=== PATIENT | male | born 1945 | race Caucasian/White ===

== ENCOUNTER 2018-10-16 09:31 | Observation (INO) ==
[2018-10-16] MEDS ORDERED: MORPHINE 4 MG/1 ML VIAL IV PRN (10:11)
[2018-10-16] MEDS ORDERED: ONDANSETRON 4 MG/2 ML VIAL IV PRN ×2 (10:11→14:34)
[2018-10-16] MEDS ORDERED: NITROGLYCERIN 2% OINT 1 INCH/GM PACK TOP STA (10:11)
[2018-10-16] MEDS ORDERED: ASPIRIN 325 MG TABLET PO STA (10:11)
[2018-10-16 10:40] LABS: Basophils % 0.5 % (0.0-0.8); Eosinophils # 0.3 10*3/uL (0.0-0.87); Eosinophils % 3.9 % (0.00-10.9); Hematocrit 41.3 VOL% (42.0-52.0); Hemoglobin 14.3 GM/DL (14.0-18.0); Immature Granulocytes % 0.5 %; Immature Granulocytes Absolute 0.03 #; Lymphocytes # 1.6 10*3/uL (1.4-4.0); Lymphocytes % 24.2 % (21.2-54.2); Mean Corpuscular HGB Conc 34.6 GM/DL (32-36); Mean Corpuscular Hemoglobin 30 PG (27-34); Mean Corpuscular Volume 86.4 FL (87-102); Mean Platelet Volume 8.6 FL (9.6-12.0); Monocytes # 0.6 10*3/uL (0.11-0.8); Monocytes % 9.1 % (1.7-12.7); Neutrophils # 4.1 10*3/uL (1.4-7.4); Neutrophils % 61.8 % (38.7-73.9); Platelet Count 178 T/CUMM (130-400); Red Blood Count 4.78 MC/CUMM (3.8-5.5); Red Cell Distribution Width 13.2 % (9.3-17.3); White Blood Count 6.6 T/CUMM (4-12)
[2018-10-16 10:50] LABS: Partial Thromboplastin Time 33.4 SECS (0-40)
[2018-10-16 10:55] LABS: INR 2.6
[2018-10-16 10:57] LABS: PT Patient Result 28.1 SECS
[2018-10-16 11:51] LABS: Albumin 3.7 G/DL (3.4-5.0); Bilirubin,Total 0.5 MG/DL (0.2-1.0); Calcium 9.2 MG/DL (8.5-10.1); Osmolality,Calculated 280.1 MOS/KG (273-304); Potassium 4.1 MMOL/L (3.5-5.1); Total Protein 6.9 G/DL (6.4-8.3)
[2018-10-16] MEDS ORDERED: SODIUM CHLORIDE 0.9% 1,000 ML IV SCH (14:34)
[2018-10-16] MEDS ORDERED: ACETAMINOPHEN 325 MG TABLET PO PRN (14:34)
[2018-10-16] MEDS: DOCUSATE SODIUM 100 MG CAPSULE PO SCH (20:34)
[2018-10-16] MEDS ORDERED: INSULIN GLARGINE 100 UNIT/ML SUBCUT SCH (23:15)
[2018-10-16] MEDS ORDERED: TAMSULOSIN 0.4 MG CAPSULE PO SCH (23:30)
[2018-10-16] MEDS ORDERED: ASPIRIN EC 81 MG TABLET PO SCH (23:30)
[2018-10-17 05:07] LABS: Basophils % 0.7 % (0.0-0.8); Eosinophils # 0.3 10*3/uL (0.0-0.87); Eosinophils % 4.4 % (0.00-10.9); Hematocrit 38.2 VOL% (42.0-52.0); Hemoglobin 13.1 GM/DL (14.0-18.0); Immature Granulocytes % 0.5 %; Immature Granulocytes Absolute 0.03 #; Lymphocytes # 1.8 10*3/uL (1.4-4.0); Lymphocytes % 29.7 % (21.2-54.2); Mean Corpuscular HGB Conc 34.3 GM/DL (32-36); Mean Corpuscular Hemoglobin 30 PG (27-34); Mean Corpuscular Volume 87.2 FL (87-102); Mean Platelet Volume 8.8 FL (9.6-12.0); Monocytes # 0.6 10*3/uL (0.11-0.8); Monocytes % 10.3 % (1.7-12.7); Neutrophils # 3.3 10*3/uL (1.4-7.4); Neutrophils % 54.4 % (38.7-73.9); Platelet Count 174 T/CUMM (130-400); Red Blood Count 4.38 MC/CUMM (3.8-5.5); Red Cell Distribution Width 13.1 % (9.3-17.3); White Blood Count 6.1 T/CUMM (4-12)
[2018-10-17 05:11] LABS: INR 2.2
[2018-10-17 05:15] LABS: PT Patient Result 23.3 SECS
[2018-10-17 05:22] LABS: Calcium 8.7 MG/DL (8.5-10.1); Osmolality,Calculated 280.3 MOS/KG (273-304); Potassium 3.8 MMOL/L (3.5-5.1)
[2018-10-17] MEDS ORDERED: PIOGLITAZONE 15 MG TABLET PO SCH (08:00)
[2018-10-17] MEDS ORDERED: GLIMEPIRIDE 2 MG TABLET PO SCH (08:00)
[2018-10-17] MEDS: DOCUSATE SODIUM 100 MG CAPSULE PO SCH (08:34)
[2018-10-17] MEDS ORDERED: amLODIPine 5 MG TABLET PO SCH (09:00)
[2018-10-17] MEDS ORDERED: LISINOPRIL 20 MG TABLET PO SCH (09:00)
[2018-10-17] MEDS ORDERED: PANTOPRAZOLE 40 MG TABLET PO SCH (09:00)
[2018-10-17] MEDS ORDERED: TRIAMTERENE/HCTZ 37.5-25 MG TABLET PO SCH (09:00)
[2018-10-17] MEDS ORDERED: TAMSULOSIN 0.4 MG CAPSULE PO SCH (09:00)
[2018-10-17 13:01] VITALS: BP 127/63
[2018-10-17] MEDS ORDERED: ASPIRIN EC 81 MG TABLET PO SCH (21:00)
[2018-10-17] MEDS ORDERED: WARFARIN 7.5 MG TABLET PO SCH (21:00)
[2018-10-17] MEDS ORDERED: INSULIN GLARGINE 100 UNIT/ML SUBCUT SCH (21:00)
[2018-10-23] MEDS ORDERED: WARFARIN 10 MG TABLET PO SCH (21:00)
== END 2018-10-17 15:45 | disposition home or self-care (01) ==
LOC: N.ED 09:31 → N.EDINP 09:31 → N.TELEN 14:13
PROVIDERS: ADMIT Family Medicine; ATTEND Family Medicine

== ENCOUNTER 2022-03-02 19:55 | Observation (INO) ==
[2022-03-02] MEDS ORDERED: ASPIRIN 325 MG TABLET PO STA (20:06)
[2022-03-02] MEDS ORDERED: ONDANSETRON 4 MG/2 ML VIAL IV STA (20:39)
[2022-03-02] MEDS ORDERED: MORPHINE 2 MG/1 ML SYRINGE IV STA (20:39)
[2022-03-02 20:48] LABS: Basophils % 0.2 % (0.0-0.8); Eosinophils # 0.2 10*3/uL (0.0-0.87); Eosinophils % 4.2 % (0.00-10.9); Hematocrit 31.8 VOL% (42.0-52.0); Immature Granulocytes % 0.2 %; Immature Granulocytes Absolute 0.01 #; Lymphocytes # 1.3 10*3/uL (1.4-4.0); Lymphocytes % 25.2 % (21.2-54.2); Mean Corpuscular HGB Conc 34.6 GM/DL (32-36); Mean Corpuscular Volume 87.8 FL (87-102); Mean Platelet Volume 8.6 FL (9.6-12.0); Monocytes # 0.5 10*3/uL (0.11-0.8); Monocytes % 9.5 % (1.7-12.7); Neutrophils % 60.7 % (38.7-73.9); Platelet Count 147 T/CUMM (130-400); Red Blood Count 3.62 MC/CUMM (3.8-5.5); Red Cell Distribution Width 12.4 % (9.3-17.3)
[2022-03-02 21:08] LABS: Albumin 3.7 G/DL (3.4-5.0); Bilirubin,Total 0.4 MG/DL (0.20-1.00); Calcium 8.4 MG/DL (8.5-10.1); Osmolality,Calculated 295.8 MOS/KG (273-304); Potassium 3.6 MMOL/L (3.5-5.1); Total Protein 6.5 G/DL (6.4-8.2)
[2022-03-02] MEDS ORDERED: KETOROLAC 30 MG/1 ML VIAL IV STA (21:17)
[2022-03-03] MEDS ORDERED: ONDANSETRON 4 MG/2 ML VIAL IV PRN (03:50)
[2022-03-03] MEDS ORDERED: ACETAMINOPHEN 325 MG TABLET PO PRN (03:50)
[2022-03-03] MEDS ORDERED: NITROGLYCERIN SL 0.4 MG TABLET SL ONE (03:50)
[2022-03-03] MEDS ORDERED: GLUCAGON 1 MG VIAL IM PRN (03:50)
[2022-03-03] MEDS ORDERED: MORPHINE 2 MG/1 ML SYRINGE IV PRN (03:50)
[2022-03-03] MEDS ORDERED: DEXTROSE 10% 250 ML BAG IV PRN (04:00)
[2022-03-03] MEDS ORDERED: INSULIN REGULAR 100 UNIT/ML SUBCUT SCH (07:30)
[2022-03-03 08:31] LABS: PT Patient Result 21.5 SECS (10.5-12.0)
[2022-03-03] MEDS ORDERED: PANTOPRAZOLE 40 MG TABLET PO SCH (09:00)
[2022-03-03] MEDS ORDERED: DOCUSATE SODIUM 100 MG CAPSULE PO SCH (09:00)
[2022-03-03] MEDS ORDERED: ASPIRIN EC 81 MG TABLET PO SCH (10:00)
[2022-03-03 12:12] VITALS: BP 102/61
== END 2022-03-03 15:57 | disposition home or self-care (01) ==
LOC: N.EDINP 19:55 → N.ED 19:55 → N.EDINP 03-03 03:29 → N.TELEN 03-03 03:57
PROVIDERS: ADMIT Family Medicine; ATTEND Family Medicine